=== PATIENT | female | born 1930 | race Caucasian/White ===

== ENCOUNTER 2017-07-20 16:10 | Emergency (ER) | payer MEDICARE, BC ==
[2017-07-20] MEDS ORDERED: ONDANSETRON 4 MG TAB.RAPDIS PO ONE (17:52)
--- NOTE | 2017-07-20 17:55 | ERNOTE ---
Medical Problem HPI - Narrative Date of Service: 07/20/17 - General Chief Complaint: Nausea/Vomiting Time Seen by Provider: 07/20/17 17:46 Source: patient Exam Limitations: no limitations - Immun/Allergies/Home Medications Allergies/Adverse Reactions: Allergies No Known Allergies Allergy (Unverified 07/12/12 13:07) Home Medications: HOME MEDICATIONS Aspirin 81 mg PO DAILY 07/20/17 [Last Taken Unknown] Atorvastatin Calcium 20 mg PO DAILY 07/20/17 [Last Taken Unknown] Metoprolol Tartrate [Lopressor] 25 mg PO DAILY 07/20/17 [Last Taken Unknown] Ondansetron [Zofran Odt] 4 mg PO Q6H PRN #20 tab 07/20/17 [Last Taken Unknown] - History of Present History Narrative: Pt. comes in with c/o nausea for 8 hours. Pt. states taht she felt fine this morning but did not feel like eating much but then ate an apple and has been nauseated since. Pt. denies any vomiting and diarrhea and denies any fevers, SOB, CP, alleviating or aggravating factors and states taht she has been able to drink fluids without any difficulties today. Timing: constant Severity: mild Modifying Factors - (Improves): Present: other - denies Modifying Factors - (Worsens): Present: eating, movement Review of Systems - Review of Systems Constitutional: Present: malaise. Absent: fever, chills, weakness, fatigue EYE: Present: no symptoms reported ENT: Present: no symptoms reported Respiratory: Present: no symptoms reported. Absent: shortness of breath, cough , wheezing Cardiology: Present: no symptoms reported. Absent: chest pain, palpitations, edema Gastrointestinal/Abdominal: Present: nausea. Absent: vomiting, diarrhea, abdominal pain Genitourinary: Present: no symptoms reported Musculoskeletal: Present: no symptoms reported. Absent: back pain, joint pain Skin: Present: no symptoms reported. Absent: rash, change in color Neurological: Present: no symptoms reported. Absent: headache, dizziness/light- headedness, numbness, tingling All Other Systems: All systems neg except as marked - Patient's Past Medical History Patient History - Cardiac/Respiratory: Hypertension, Hyperlipidemia, Other Patient History - Surgical Procedures: Cholecystectomy, D & C - Family History Mother Family History - Medical: Father Family History - Medical: - Social History Living Situations: home Abuse History: No History of abuse Psych History: No pertinent hx Smoking Status: Never smoker Physical Exam - Physical Exam General Appearance: Present: wd/wn, alert, no apparent distress Head Exam: Present: normal inspection, no evidence of injury Eye Exam: Normal inspection: bilateral, PERRL: bilateral, EOMI: bilateral Ears, Nose, Throat: Present: normal ENT inspection, normal pharynx Neck: Present: normal inspection, nontender, supple, full range of motion. Absent: lymphadenopathy (R), lymphadenopathy (L) Respiratory: Present: no respiratory distress, normal breath sounds, no accessory muscle use, chest nontender, lungs clear Cardiovascular/Chest: Present: regular rate, rhythm, no murmur, normal peripheral pulses Gastrointestinal/Abdominal: Present: normal bowel sounds, nontender, nondistended, soft, no organomegaly Back Exam: Present: normal inspection, normal range of motion, no CVA tenderness , no vertebral tenderness Extremity Exam: Present: normal inspection Neurological Exam: Present: alert, oriented, normal mood/affect, no motor/ sensory deficits Skin Exam: Present: normal color, warm/dry. Absent: pallor, skin rash ED Progress - Vital Signs Patient's Vital Signs:: I have reviewed the patient's vital signs. Vital Signs: Vital Signs 07/20/17 16:28 Temperature 37.5 C Pulse Rate 78 Respiratory 16 Rate Blood Pressure 149/63 O2 Sat by Pulse 98 Oximetry - Progress/Reassessment Chief Complaint: Nausea/Vomiting Departure Clinical Impression: Acute gastroenteritis - Departure Disposition: Home self-care Condition: Good Instructions: Viral Gastroenteritis, Adult, [id number] Additional Instructions: Please increase fluid intake and follow up with primary provider in 1-2 days. Referrals: Nishant Elliott MD [Primary Care Provider] - Prescriptions: Ondansetron [Zofran Odt] 4 mg PO Q6H PRN #20 tab PRN Reason: Nausea
[2017-07-20] MEDS ORDERED: ONDANSETRON 4 MG TAB.RAPDIS ONE (17:59)
[2017-07-20 18:14] LABS: Hemoglobin 14.6 gm/dL (12.5-16.0); Mean Cell Volume 92.7 fl (78-100); Mean Corpuscular Hemoglobin 31.5 pg (27-31); Mean Platelet Volume 10.3 fl (6.0-9.5); Neutrophil # 6.9 K/mm3 (1.3-6.0); Neutrophil % 88.7 % (42-75.0); Platelet Count 158 K/mm3 (150-450); Red Blood Count 4.64 M/mm3 (4.2-5.4); Red Cell Distribution Width 14.5 % (11.5-14.0); White Blood Count 7.7 K/mm3 (4.0-10.5)
[2017-07-20 18:33] LABS: Albumin * 3.4 gm/dl (3.4-5.0); Anion Gap 13.4 mmol/L (6.8-13.8); Calcium * 8.4 mg/dL (7.9-10.9); Potassium 4.4 mmol/L (3.4-4.6); Total Protein 7.7 gm/dL (6.2-8.2)
[2017-07-20 18:34] LABS: Bilirubin, Total 0.5 mg/dL (0.0-1.1); Ca. Corrected For Albumin 8.6 mg/dL (8.4-10.2)
[2017-07-20 18:48] LABS: Urine Bilirubin Negative (NEGATIVE); Urine Blood 50 /ul (NEGATIVE); Urine Ketone Negative (NEGATIVE); Urine Nitrite Negative (NEGATIVE); Urine Protein Negative (NEGATIVE); Urine Urobilinogen Normal (NORMAL)
[2017-07-20 19:06] LABS: Urine Appearance Clear; Urine Bacteria TRACE; Urine Color Yellow; Urine RBC None Seen /hpf (0-5); Urine WBC None Seen /hpf (0-5)
[2017-07-20 20:03] VITALS: BP 125/56
== END 2017-07-20 19:49 | disposition home or self-care (01) ==
LOC: ER 16:10
DX: K52.9 Noninfective gastroenteritis and colitis, unspecified (principal); E78.5 Hyperlipidemia, unspecified; I10 Essential (primary) hypertension